=== PATIENT | male | born 1950 | race Caucasian/White ===

== ENCOUNTER → 2016-08-12 | Outpatient (CLI) | payer MEDICARE, OTHER ==
--- NOTE | 2016-08-12 11:16 | KCIC ---
MR LUMBAR SPINE HISTORY:Reason For StudyReason: LOW BACK PAIN / Spl. Instructions: / History: Chronic LBP.Pt states he needs an updated MR for more epidurals. No surg hx COMPARISON: None Technique: Sagittal T2, sagittal STIR, and sagittal T1-weighted images were obtained. Additional axial T1 and T2 weighted imaging was also performed. FINDINGS: Alignment and curvature are within normal limits. There is no compression deformity. Bone marrow signal is within normal limits. The conus terminates normally at the level of L1. Visualized intra-abdominal contents are within normal limits. At L5-S1 there is no spinal stenosis. At L4-L5 there is a broad-based disc bulge that extends into the bilateral foramina worse on the left. This causes moderate left foraminal stenosis. Correlate for left L4 radiculopathy. There are bilateral facet joint effusions. At L3-L4 there is a broad-based disc bulge that extends into the bilateral foramina causing mild foraminal narrowing. At L2-L3 there is a small disc bulge but no spinal stenosis. Impression: - Mild multilevel degenerative disc disease greatest at L4-L5 where there is moderate left foraminal stenosis. Correlate for left L4 radiculopathy. Electronically signed by: Gianni Colorado (Aug 12, 2016 11:14:46)
== END | disposition home or self-care (01) ==
LOC: KCIC MRI 10:00
PROVIDERS: ATTEND Physical Medicine & Rehabilitation
DX: M51.36 Other intervertebral disc degeneration, lumbar region (principal)
CPT/HCPCS: 72148

== ENCOUNTER → 2017-12-19 | Outpatient (CLI) | payer OTHER | END | disposition home or self-care (01) | LOC: KCIC MRI 11:00 | DX: M51.26 Other intervertebral disc displacement, lumbar region (principal); M51.36 Other intervertebral disc degeneration, lumbar region; M48.061 Spinal stenosis, lumbar region without neurogenic claudication; M43.16 Spondylolisthesis, lumbar region | CPT/HCPCS: 72148 ==